=== PATIENT | female | born 2005 | race African-American/Black ===

== ENCOUNTER 2023-08-03 11:46 | Emergency (ER) | payer OTHER, SELFPAY ==
[2023-08-03 12:08] LABS: Pregnancy Test - Urine (BHCG) POSITIVE (Negative); Pregu Control Background? CLEAR/WHITE (CLR/WHITE); Pregu Control Bar Appear? YES (CONTROL BAR)
[2023-08-03 12:22] LABS: #Monocytes 0.7 10x3/uL (0.0-1.1); #Neutrophils 2.6 10x3/uL (1.5-8.4); %Basophils 0.2 % (0.0-2.0); %Eosinophils 0.3 % (0.0-6.0); %Lymphocytes 44.5 % (18.0-47.0); %Monocytes 11.6 % (0.0-10.0); %Neutrophils 43.2 % (40.0-75.0); Hematocrit 37.2 % (34.9-44.5); Hemoglobin 12.7 g/dL (12.0-15.5); Mean Corpuscular HGB CONC 34.1 g/dL (32.0-36.0); Mean Corpuscular Hemoglobin 29.1 pg (27.0-33.0); Mean Corpuscular Volume 85.3 fl (81.6-98.3); Mean Platelet Volume 9.1 fl (7.4-10.4); Platelet Count 249 10x3/uL (150-450); RBC Distribution Width 13.2 % (11.5-14.5); Red Blood Cell (RBC) Count 4.36 10x6/uL (3.90-5.03)
[2023-08-03 12:36] LABS: Bilirubin Neg (Negative); Blood, Urine Negative (Negative); Clarity Slightly Cloudy (Clear); Glucose, Urine (Dipstick) Normal (Negative); Ketone, Urine 5 mg/dL (Negative); Leukocyte 100 (Negative); Nitrite Negative (Negative); Protein, Urine (Dipstick) 15 mg/dl (Neg-Trace); Urobilinogen Normal mg/dL (Less than 2)
[2023-08-03 12:37] LABS: ALT (SGPT) 13 U/L (8-55); AST (SGOT) 13 U/L (5-34); Albumin 4.4 g/dL (3.5-5.0); Alkaline Phosphatase 34 U/L (40-100); Anion Gap 11 mmol/L (10-20); BUN (Urea Nitrogen) 8 mg/dL (7.0-18.7); Bilirubin, Total 0.3 mg/dL (0.2-1.2); Calc. Creatinine Clearance 0 mL/min (70-130); Calcium 9.2 mg/dL (7.8-10.44); Carbon Dioxide 25 mmol/L (22-29); Chloride 104 mmol/L (98-107); Estimated GFR 117; Globulin 3.3 g/dL (2.4-3.5); Glucose 88 mg/dL (70-105); Potassium 4.1 mmol/L (3.5-5.1); Protein, Total 7.7 g/dL (6.0-8.3); Sodium 136 mmol/L (136-145)
[2023-08-03 12:41] LABS: CAUTI Indications for Culture Pelvic or flank pain; RBC/HPF None Seen HPF (0-3); WBC/HPF 0-3 HPF (0-3)
[2023-08-03 12:42] LABS: Bacteria/HPF 1+ HPF (None Seen); Urine Culture Reflex No No
== END 2023-08-03 15:10 | disposition home or self-care (01) ==
LOC: CSHERS 11:46
DX: O99.891 Other specified diseases and conditions complicating pregnancy (principal); R10.30 Lower abdominal pain, unspecified; Z3A.01 Less than 8 weeks gestation of pregnancy
CPT/HCPCS: 36415; 76856; 80053; 81001; 81025; 84702; 85025

== ENCOUNTER 2024-01-08 10:59 | Day surgery (SDC) | payer OTHER ==
[2024-01-08] MEDS ORDERED: hydrALAZINE 20 MG/ML VIAL SLOW IVP PRN (11:43)
[2024-01-08 12:17] VITALS: BMI 29.2
[2024-01-08 12:39] LABS: Bilirubin Neg (Negative); Blood, Urine Negative (Negative); Clarity Clear (Clear); Glucose, Urine (Dipstick) Normal (Negative); Ketone, Urine Negative (Negative); Leukocyte Negative (Negative); Nitrite Negative (Negative); Protein, Urine (Dipstick) Negative (Neg-Trace); Specific Gravity, Urine 1.015 (1.005-1.030); Urobilinogen Normal mg/dL (Less than 2)
[2024-01-08 12:51] LABS: Bacteria/HPF 1+ HPF (None Seen); CAUTI Indications for Culture Pregnancy; RBC/HPF 0-3 HPF (0-3); WBC/HPF 0-3 HPF (0-3)
[2024-01-08 12:52] LABS: Urine Culture Reflex Yes Yes
[2024-01-08] MEDS ORDERED: Acetaminophen 500 MG TAB PO SCH (13:00)
[2024-01-10 07:12] LABS: GC by PCR, Vaginal Swab *Indeterminate (NotDetected)
[2024-01-10 07:13] LABS: Chlamydia by PCR, Vaginal Swab *Indeterminate (NotDetected)
== END 2024-01-08 14:40 | disposition home health service, planned readmission (86) ==
LOC: CSHLD/OP 10:59
PROVIDERS: ATTEND Obstetrics & Gynecology
DX: O46.93 Antepartum hemorrhage, unspecified, third trimester (principal); O99.012 Anemia complicating pregnancy, second trimester; Z3A.29 29 weeks gestation of pregnancy; Z90.89 Acquired absence of other organs; Z79.899 Other long term (current) drug therapy
CPT/HCPCS: 76817; 81001; 87086; 87480; 87491; 87510; 87591; 87660

== ENCOUNTER 2024-04-20 10:49 | Emergency (ER) | payer OTHER ==
[2024-04-20] MEDS ORDERED: Acetaminophen 500 MG TAB ONE (12:19)
[2024-04-20] MEDS ORDERED: diphenhydrAMINE 25 MG CAP ONE (12:19)
== END 2024-04-20 12:27 | disposition home or self-care (01) ==
LOC: CSHERS 10:49
DX: L03.115 Cellulitis of right lower limb (principal); J45.909 Unspecified asthma, uncomplicated; Z55.6 Problems related to health literacy
CPT/HCPCS: 99282

== ENCOUNTER 2025-03-05 15:57 | Emergency (ER) | payer OTHER | END 2025-03-05 17:40 | disposition home or self-care (01) | LOC: CSHERS 15:57 | DX: R11.2 Nausea with vomiting, unspecified (principal) | CPT/HCPCS: 87428; 99284; Q0162 ==